=== PATIENT | female | born 1980 | race Caucasian/White ===

== ENCOUNTER → 2018-10-18 | Outpatient (CLI) | payer OTHER ==
[2018-10-18 16:52] LABS: Total Protein,CSF 26 mg/dL (12-60)
[2018-10-18 17:08] LABS: Appearance,CSF Clear; CSF Tube Number 4; CSF Tube Volume 2; Nucleated Cells, CSF 0 u/L (0-5); Red Blood Cell,CSF 1 u/L (0-10)
== END | disposition home or self-care (01) ==
LOC: LABWHC1 11:23
PROVIDERS: ATTEND Psychiatry & Neurology Neurology
DX: R90.82 White matter disease, unspecified (principal); R42 Dizziness and giddiness; R20.8 Other disturbances of skin sensation; Z51.81 Encounter for therapeutic drug level monitoring
CPT/HCPCS: 36415; 82040; 82042; 82565; 82784; 83873; 83916; 84157; 84520; 87801; 89050